=== PATIENT | female | born 1970 | race Caucasian/White ===

== ENCOUNTER 2019-08-23 08:07 | Day surgery (SDC) | payer BC ==
[~2019-08-23 08:07] MED LIST: Lactated Ringers 1,000 ML IV ONE
[2019-08-23] MEDS ORDERED: Lactated Ringers 1,000 ML IV SCH (09:00)
[2019-08-23] MEDS ORDERED: Versed 2 MG/2 ML Injection ONE (10:08)
[2019-08-23] MEDS ORDERED: SUBLIMAZE 100 MCG/2 ML ONE ×2 (10:08→11:11)
[2019-08-23] MEDS ORDERED: DIPRIVAN 200 MG/20 ML IV ONE (10:08)
[2019-08-23] MEDS ORDERED: Zofran 4 MG/2 ML VIAL ONE (10:15)
[2019-08-23] MEDS ORDERED: Decadron 4 MG INJ ONE ×2 (10:15)
[2019-08-23] MEDS ORDERED: TORAdol 30 mg Injection ONE (10:15)
[2019-08-23] MEDS ORDERED: Lactated Ringers 1,000 ML IV ONE (10:34)
[2019-08-23 12:09] VITALS: O2SAT 98
[2019-08-23 12:21] VITALS: BP 120/60; PULSE 52
--- NOTE | 2019-08-26 07:52 | OP ---
SURGERY DATE/TIME: 08/23/2019 1017 PREOPERATIVE DIAGNOSIS: Abnormal uterine bleeding and enlarged uterus. POSTOPERATIVE DIAGNOSES: 1) Abnormal uterine bleeding. 2) Enlarged uterus. 3) Posterior submucosal fibroid. 4) Endometrial polyp. PROCEDURE: 1) Hysteroscopy D&C. 2) Resection of posterior submucosal fibroid. 3) Resection of endometrial polyp. SURGEON: Americo Fuentes D.O. QUALITY CONTROL REPRESENTATIVE: Ziyad Juarez. ANESTHESIA: General. ESTIMATED BLOOD LOSS: Minimal. COMPLICATIONS: None. INDICATIONS: The risks, benefits, indications and alternatives of the procedure were reviewed with the patient prior to the procedure. The patient understood the risk of infection, bleeding, bowel injury, bladder injury, ureteral injury, uterine perforation and pelvic infection associated with the surgery and desires to have this surgery as a possible need to alleviate her current medical condition. DESCRIPTION OF PROCEDURE AND FINDINGS: At this point the patient is taken to the operating room, given general sedation, placed in dorsal lithotomy position. Prepped and draped in usual sterile fashion. A weighted speculum is then placed in the patient's vagina and the anterior lip of the cervix is grasped with a single tooth tenaculum. Endocervical dilators were advanced through the endocervical canal as a means to dilate the cervix and at this point the uterus was sounded to approximately 10 cm. From this point after dilatation of the cervix, a 5 mm hysteroscope was then placed through the endocervical canal towards the frontal region where visualization revealed her to have a submucosal fibroid approximately 2 to 3 cm by 2 to 3 cm in dimension located posteriorly. There also appeared to be just distal to the fibroid approximately 2 x 2 cm endometrial polypoid lesion. From this point the MyoSure was then introduced through the channel of the hysteroscope and resection of the submucosal fibroid was taken place and was done so without complication with several bites. After removal of the fibroid the MyoSure was used to resect the endometrial polyp without complication and in its entirety. Visualization regarding the remaining endometrial cavity appeared to be within normal limits with no other gross abnormalities that were noted. From this point the hysteroscope was then removed. The bilateral ostia were identified and were normal. Again, the hysteroscope was then removed and at this point a curette was then placed into the fundus and curettage was performed in all quadrants of the uterus retrieving a mild to moderate amount of tissue. After complete curettage all instruments were then removed from the patient's vaginal region. The patient was then taken out of the dorsal lithotomy position and was then taken to the recovery room in stable condition. All instruments and laps were accounted for x2.
== END 2019-08-23 12:23 | disposition home or self-care (01) ==
LOC: SDC 08:07
PROVIDERS: ATTEND Obstetrics & Gynecology
DX: N93.9 Abnormal uterine and vaginal bleeding, unspecified (principal); N84.0 Polyp of corpus uteri; D25.0 Submucous leiomyoma of uterus
CPT/HCPCS: 84703; 88305; J1100; J1885; J2250; J2405; J2704; J3010

== ENCOUNTER 2022-09-27 07:30 | Observation (INO) | payer BC ==
[2022-09-27] MEDS ORDERED: CLINDAMYCIN-D5W 900 MG/50 ML*** 900 MG/50 ML BAG IV STA (07:40)
[2022-09-27] MEDS ORDERED: Versed 2 MG/2 ML Injection IV ONE (07:41)
[2022-09-27] MEDS ORDERED: Pepcid 20 MG VIAL IV ONE ×2 (07:41→08:42)
[2022-09-27] MEDS ORDERED: Transderm Scop 1.5MG Patch TOP PRN (07:42)
[2022-09-27] MEDS ORDERED: Reglan 10 MG/2 ML IV ONE (07:42)
[2022-09-27] MEDS ORDERED: Lactated Ringers 1,000 ML IV ONE ×3 (07:49→12:09)
[2022-09-27] MEDS ORDERED: CLINDAMYCIN-D5W 900 MG/50 ML*** 900 MG/50 ML BAG IV ONE (07:50)
[2022-09-27] MEDS: Lactated Ringers 1,000 ML IV SCH ×2 (07:54→17:31)
[2022-09-27 08:10] LABS: Absolute Neutrophil Ct (ANC) 2.47 x10^3/uL (1.4-6.9); BASOPHIL % 1.3 % (0.0-0.4); Basophil (Absolute #) 0.06 x10^3/uL (0-0.4); Eosinophil % 5.9 % (0.00-5.0); Eosinophil (Absolute #) 0.27 x10^3/uL (0-0.5); Hemoglobin 9.9 g/dL (12.0-16.0); IMMATURE GRAN # 0.01 x10^3u/L (0.00-0.03); IMMATURE GRAN % 0.2 % (0.00-0.4); Lymphocytes % 28.3 % (24.0-44.0); Mean Cell Volume 79.3 fL (78-100); Mean Corpuscular Hemoglobin 23.8 pg (26-32); Mean Platelet Volume 10.6 fL (7.5-11.0); Monocyte (Absolute #) 0.48 x10^3/uL (0.0-1.3); Monocytes % 10.5 % (0.0-12.0); Neutrophil % 53.8 % (36.0-66.0); Platelet Count 231 x10^3/uL (150-450); Red Blood Count 4.16 x10^6/uL (4.1-5.4); Red Cell Distribution Width 16.9 % (11.5-14.0); White Blood Count 4.6 x10^3/uL (4.0-10.5)
[2022-09-27 08:22] LABS: ALBUMIN 4.3 g/dL (3.5-5.0); ALKALINE PHOSPHATASE 68 U/L (38-126); ANION GAP 7.5 MEQ/L (5-15); BLOOD UREA NITROGEN 16 mg/dL (7-17); CHLORIDE 106 mmol/L (98-107); Calcium 8.3 mg/dL (8.4-10.2); Carbon Dioxide 26 mmol/L (22-30); Creatinine 1 0.59 mg/dL (0.52-1.04); EST GLOMERULAR FILTRATION RATE > 60.0 ML/MIN; Glucose 88 mg/dL (74-106); Potassium 3.7 mmol/L (3.5-5.1); SGOT/AST 34 U/L (14-36); SGPT/ALT 25 U/L (0-35); SODIUM 136 mmol/L (137-145); Total Protein 7.6 g/dL (6.3-8.2)
[2022-09-27] MEDS ORDERED: Versed 2 MG/2 ML Injection ONE ×2 (08:42→09:33)
[2022-09-27] MEDS ORDERED: Transderm Scop 1.5MG Patch ONE (08:42)
[2022-09-27] MEDS ORDERED: Reglan 10 MG/2 ML ONE (08:42)
[2022-09-27 08:44] LABS: ABO TYPING O; Antibody Screen NEGATIVE (NEGATIVE); RH TYPING POSITIVE
[2022-09-27] MEDS ORDERED: DIPRIVAN 200 MG/20 ML IV ONE (09:32)
[2022-09-27] MEDS ORDERED: Xylocaine-Mpf 2% 5 Ml Vial ONE (09:33)
[2022-09-27] MEDS ORDERED: Decadron 4 MG INJ ONE (09:35)
[2022-09-27] MEDS ORDERED: Zofran 4 MG/2 ML VIAL ONE ×2 (09:35→11:31)
[2022-09-27] MEDS ORDERED: SUBLIMAZE 100 MCG/2 ML ONE (09:38)
[2022-09-27] MEDS ORDERED: Astramorph-Pf 5 MG/10 ML ONE (09:39)
[2022-09-27] MEDS ORDERED: Propofol 1000 mg/100 ml Bottle IV ONE (09:40)
[2022-09-27] MEDS ORDERED: PHENYLEPHRINE HCL ONE (10:04)
[2022-09-27] MEDS ORDERED: BRIDION 200MG/2ML IV ONE (10:15)
[2022-09-27] MEDS ORDERED: Marcaine 0.5%/Epinephrine 10 ML ONE (10:54)
[2022-09-27] MEDS ORDERED: TORAdol 30 mg Injection ONE (11:10)
[2022-09-27] MEDS ORDERED: Zofran 4 MG/2 ML VIAL IV PRN ×2 (12:30→13:00)
[2022-09-27] MEDS ORDERED: CLARITIN 10 MG PO PRN (13:00)
[2022-09-27] MEDS ORDERED: DEMEROL 50 MG IV PRN (13:00)
[2022-09-27] MEDS ORDERED: Sodium Chloride 0.9% 10 ML FLUSH Syringe IJ PRN (13:00)
[2022-09-27] MEDS ORDERED: BENADRYL 50 MG/ML IV PRN (13:00)
[2022-09-27] MEDS ORDERED: Nubain 10 MG/ML IV PRN (13:00)
[2022-09-27] MEDS ORDERED: Narcan 0.4 MG/ML IV PRN (13:00)
[2022-09-27] MEDS: HOLD NARCOTIC ANALGESICS AND SEDATIVES X24 HR MC SCH (13:03)
[2022-09-27] MEDS: MORPHINE SULFATE 2 MG INJ IV PRN ×3 (13:53→20:44)
[2022-09-27] MEDS: CLINDAMYCIN-D5W 900 MG/50 ML*** 900 MG/50 ML BAG IV SCH (15:33)
[2022-09-27] MEDS ORDERED: MEDICATION INTERVENTION MC SCH (16:15)
[2022-09-27 17:21] LABS: Appearance CLEAR (CLEAR); Bilirubin NEGATIVE (NEGATIVE); Glucose NEGATIVE (NEGATIVE); Ketones NEGATIVE (NEGATIVE); Nitrite NEGATIVE (NEGATIVE); Protein,Urine Dip NEGATIVE (Negative); RBC TRACE-INTACT Ery/ul (0-5); Urobilinogen 0.2 mg/dL (0-1)
[2022-09-27] MEDS: PERCOCET TABLET 5/325MG PO PRN ×2 (17:31→22:08)
[2022-09-27 18:26] LABS: Epithelial Cells None Seen /HPF (None Seen); Hyaline Casts NONE SEEN /LPF (0-2); RBC 0-2 /HPF (0-5)
[2022-09-27 18:32] LABS: Hematocrit 28.3 % (35-47); Hemoglobin 8.4 g/dL (12.0-16.0); Mean Cell Volume 79.3 fL (78-100); Mean Corpuscular Hemoglobin 23.5 pg (26-32); Mean Corpuscular Hgb Concent. 29.7 g/dL (32-36); Mean Platelet Volume 10.7 fL (7.5-11.0); Platelet Count 209 x10^3/uL (150-450); Red Blood Count 3.57 x10^6/uL (4.1-5.4); Red Cell Distribution Width 16.8 % (11.5-14.0)
[2022-09-27 18:37] LABS: Bacteria Many /HPF (None Seen)
[2022-09-28] MEDS: CLINDAMYCIN-D5W 900 MG/50 ML*** 900 MG/50 ML BAG IV SCH (00:02)
[2022-09-28] MEDS: MORPHINE SULFATE 2 MG INJ IV PRN ×2 (00:17→04:03)
[2022-09-28] MEDS: Lactated Ringers 1,000 ML IV SCH (04:34)
[2022-09-28 05:12] LABS: Hematocrit 25.2 % (35-47); Hemoglobin 7.7 g/dL (12.0-16.0); Mean Cell Volume 77.5 fL (78-100); Mean Corpuscular Hemoglobin 23.7 pg (26-32); Mean Corpuscular Hgb Concent. 30.6 g/dL (32-36); Mean Platelet Volume 11.1 fL (7.5-11.0); Platelet Count 226 x10^3/uL (150-450); Red Blood Count 3.25 x10^6/uL (4.1-5.4); Red Cell Distribution Width 17.3 % (11.5-14.0); White Blood Count 9.1 x10^3/uL (4.0-10.5)
--- NOTE | 2022-09-28 07:53 | PCM.NOTE ---
Date and Time: 09/28/22 0750 Subjective Assessment: pod 1 sp laparotomy supracervical hysterectomy pt resting in bed and doing well ambulating and tolerating diet vss afebrile abd; soft incision c/d/intact ext; no clubbing cyanosis or edema a/p sp laparotomy supracervical hysterectomy right ovarian cystectomy postop anemia will repeat cbc this morning likely dc home this afternoon should fu in office in 1 wk Objective Exam Wound Assessment: Skin/Wound Assessment Wound/Incision Assessment Start: 09/27/22 12:36 Text: Status: Active Freq: Q4H Protocol: Document 09/28/22 04:41 LM (Rec: 09/28/22 04:44 LM [id number]) Wound/Incision Assessment Lower Anterior Medial Abdomen Wound Assessment Shift Assessment Wound Type Incision Drainage Odor None/Absent General Appearance Well Approximated,Open to air Wound Photo Photo Taken No OBJECTIVE DATA Vital Signs: Vital Signs - 24 hr Temp Pulse Resp BP BP Pulse Ox 09/28/22 07:14 97.8 F 86 16 91/54 98 09/28/22 04:41 18 09/28/22 04:00 97.1 F 92 H 18 97/55 99 09/28/22 00:00 18 09/27/22 23:43 97.3 F 75 18 97/52 97 09/27/22 20:00 97.9 F 72 16 111/59 97 09/27/22 16:00 20 09/27/22 15:44 97.7 F 09/27/22 15:21 72 108/56 94 L 09/27/22 14:51 73 112/57 94 L 09/27/22 14:21 73 107/56 95 09/27/22 13:51 77 157/65 96 09/27/22 13:21 68 103/52 96 09/27/22 13:01 75 20 106/58 94 L 09/27/22 12:51 79 18 111/56 98 09/27/22 12:38 98.2 F 83 16 128/62 100 09/27/22 12:36 79 111/64 98 09/27/22 08:22 98.2 F 83 16 128/62 100 09/27/22 08:08 98.2 F 83 16 128/62 100 09/27/22 07:58 98.2 F 83 16 128/62 100 Pain Assessment - Last Documented Pain Intensity 2 Pain Scale Used 0-10 Pain Scale Intake and Output: Intake & Output 09/25/22 09/26/22 09/27/22 09/28/22 11:59 11:59 11:59 11:59 Intake Total 721 Output Total 2250 Balance -1529 Weight 57.2 kg 57.2 kg Lab Results: Lab Results-Last 24 Hours 09/27/22 09/27/22 09/27/22 Range/Units 08:00 08:00 08:00 WBC 4.6 (4.0-10.5) x10^3/uL RBC 4.16 (4.1-5.4) x10^6/uL Hgb 9.9 L (12.0-16.0) g/dL Hct 33.0 L (35-47) % MCV 79.3 (78-100) fL MCH 23.8 L (26-32) pg MCHC 30.0 L (32-36) g/dL RDW 16.9 H (11.5-14.0) % Plt Count 231 (150-450) x10^3/uL MPV 10.6 (7.5-11.0) fL Gran % 53.8 (36.0-66.0) % Immature Gran % (Auto) 0.2 (0.00-0.4) % Nucleat RBC Rel Count 0.0 (0.00-0.1) % Eos # (Auto) 0.27 (0-0.5) x10^3/uL Immature Gran # (Auto) 0.01 (0.00-0.03) x10^3u/L Absolute Lymphs (auto) 1.30 (1.0-4.6) x10^3/uL Absolute Monos (auto) 0.48 (0.0-1.3) x10^3/uL Absolute Nucleated RBC 0.00 (0.00-0.01) x10^3u/L Lymphocytes % 28.3 (24.0-44.0) % Monocytes % 10.5 (0.0-12.0) % Eosinophils % 5.9 H (0.00-5.0) % Basophils % 1.3 (0.0-0.4) % Absolute Granulocytes 2.47 (1.4-6.9) x10^3/uL Basophils # 0.06 (0-0.4) x10^3/uL Sodium 136 L (137-145) mmol/L Potassium 3.7 (3.5-5.1) mmol/L Chloride 106 (98-107) mmol/L Carbon Dioxide 26 (22-30) mmol/L Anion Gap 7.5 (5-15) MEQ/L BUN 16 (7-17) mg/dL Creatinine 0.59 (0.52-1.04) mg/dL Estimated GFR > 60.0 ML/MIN Glucose 88 (74-106) mg/dL Calcium 8.3 L (8.4-10.2) mg/dL Total Bilirubin 0.60 (0.2-1.3) mg/dL AST 34 (14-36) U/L ALT 25 (0-35) U/L Alkaline Phosphatase 68 (38-126) U/L Serum Total Protein 7.6 (6.3-8.2) g/dL Albumin 4.3 (3.5-5.0) g/dL Serum , Qual (Negative) Urine Color (YELLOW) Urine Appearance (CLEAR) Urine pH (5-6) Ur Specific [place] (1.005-1.025) POC Urine Protein Conf (Negative) Urine Ketones (NEGATIVE) Urine Nitrite (NEGATIVE) Urine Bilirubin (NEGATIVE) Urine Urobilinogen (0-1) mg/dL Urine Leukocytes (NEGATIVE) U Hyaline Cast (Auto) (0-2) /LPF Urine RBC (0-5) Franco/ul Urine Microscopic RBC (0-5) /HPF Urine Microscopic WBC (0-5) /HPF Ur Epithelial Cells (None Seen) /HPF Urine Bacteria (None Seen) /HPF Urine Glucose (NEGATIVE) mg/dL ABO Group O Rh Factor POSITIVE Antibody Screen NEGATIVE (NEGATIVE) 09/27/22 09/27/22 09/27/22 Range/Units 08:00 11:04 17:50 WBC 11.0 H (4.0-10.5) x10^3/uL RBC 3.57 L (4.1-5.4) x10^6/uL Hgb 8.4 L (12.0-16.0) g/dL Hct 28.3 L (35-47) % MCV 79.3 (78-100) fL MCH 23.5 L (26-32) pg MCHC 29.7 L (32-36) g/dL RDW 16.8 H (11.5-14.0) % Plt Count 209 (150-450) x10^3/uL MPV 10.7 (7.5-11.0) fL Gran % (36.0-66.0) % Immature Gran % (Auto) (0.00-0.4) % Nucleat RBC Rel Count (0.00-0.1) % Eos # (Auto) (0-0.5) x10^3/uL Immature Gran # (Auto) (0.00-0.03) x10^3u/L Absolute Lymphs (auto) (1.0-4.6) x10^3/uL Absolute Monos (auto) (0.0-1.3) x10^3/uL Absolute Nucleated RBC (0.00-0.01) x10^3u/L Lymphocytes % (24.0-44.0) % Monocytes % (0.0-12.0) % Eosinophils % (0.00-5.0) % Basophils % (0.0-0.4) % Absolute Granulocytes (1.4-6.9) x10^3/uL Basophils # (0-0.4) x10^3/uL Sodium (137-145) mmol/L Potassium (3.5-5.1) mmol/L Chloride (98-107) mmol/L Carbon Dioxide (22-30) mmol/L Anion Gap (5-15) MEQ/L BUN (7-17) mg/dL Creatinine (0.52-1.04) mg/dL Estimated GFR ML/MIN Glucose (74-106) mg/dL Calcium (8.4-10.2) mg/dL Total Bilirubin (0.2-1.3) mg/dL AST (14-36) U/L ALT (0-35) U/L Alkaline Phosphatase (38-126) U/L Serum Total Protein (6.3-8.2) g/dL Albumin (3.5-5.0) g/dL Serum , Qual NEGATIVE (Negative) Urine Color YELLOW (YELLOW) Urine Appearance CLEAR (CLEAR) Urine pH 7.0 (5-6) Ur Specific [place] 1.020 (1.005-1.025) POC Urine Protein Conf NEGATIVE (Negative) Urine Ketones NEGATIVE (NEGATIVE) Urine Nitrite NEGATIVE (NEGATIVE) Urine Bilirubin NEGATIVE (NEGATIVE) Urine Urobilinogen 0.2 (0-1) mg/dL Urine Leukocytes NEGATIVE (NEGATIVE) U Hyaline Cast (Auto) NONE SEEN (0-2) /LPF Urine RBC TRACE-INTACT A (0-5) Franco/ul Urine Microscopic RBC 0-2 (0-5) /HPF Urine Microscopic WBC 3-5 (0-5) /HPF Ur Epithelial Cells None Seen (None Seen) /HPF Urine Bacteria Many A (None Seen) /HPF Urine Glucose NEGATIVE (NEGATIVE) mg/dL ABO Group Rh Factor Antibody Screen (NEGATIVE) 09/28/22 Range/Units 04:30 WBC 9.1 (4.0-10.5) x10^3/uL RBC 3.25 L (4.1-5.4) x10^6/uL Hgb 7.7 L (12.0-16.0) g/dL Hct 25.2 L (35-47) % MCV 77.5 L (78-100) fL MCH 23.7 L (26-32) pg MCHC 30.6 L (32-36) g/dL RDW 17.3 H (11.5-14.0) % Plt Count 226 (150-450) x10^3/uL MPV 11.1 H (7.5-11.0) fL Gran % (36.0-66.0) % Immature Gran % (Auto) (0.00-0.4) % Nucleat RBC Rel Count (0.00-0.1) % Eos # (Auto) (0-0.5) x10^3/uL Immature Gran # (Auto) (0.00-0.03) x10^3u/L Absolute Lymphs (auto) (1.0-4.6) x10^3/uL Absolute Monos (auto) (0.0-1.3) x10^3/uL Absolute Nucleated RBC (0.00-0.01) x10^3u/L Lymphocytes % (24.0-44.0) % Monocytes % (0.0-12.0) % Eosinophils % (0.00-5.0) % Basophils % (0.0-0.4) % Absolute Granulocytes (1.4-6.9) x10^3/uL Basophils # (0-0.4) x10^3/uL Sodium (137-145) mmol/L Potassium (3.5-5.1) mmol/L Chloride (98-107) mmol/L Carbon Dioxide (22-30) mmol/L Anion Gap (5-15) MEQ/L BUN (7-17) mg/dL Creatinine (0.52-1.04) mg/dL Estimated GFR ML/MIN Glucose (74-106) mg/dL Calcium (8.4-10.2) mg/dL Total Bilirubin (0.2-1.3) mg/dL AST (14-36) U/L ALT (0-35) U/L Alkaline Phosphatase (38-126) U/L Serum Total Protein (6.3-8.2) g/dL Albumin (3.5-5.0) g/dL Serum , Qual (Negative) Urine Color (YELLOW) Urine Appearance (CLEAR) Urine pH (5-6) Ur Specific [place] (1.005-1.025) POC Urine Protein Conf (Negative) Urine Ketones (NEGATIVE) Urine Nitrite (NEGATIVE) Urine Bilirubin (NEGATIVE) Urine Urobilinogen (0-1) mg/dL Urine Leukocytes (NEGATIVE) U Hyaline Cast (Auto) (0-2) /LPF Urine RBC (0-5) Franco/ul Urine Microscopic RBC (0-5) /HPF Urine Microscopic WBC (0-5) /HPF Ur Epithelial Cells (None Seen) /HPF Urine Bacteria (None Seen) /HPF Urine Glucose (NEGATIVE) mg/dL ABO Group Rh Factor Antibody Screen (NEGATIVE) Multi-Disciplinary Progress Notes: Multi-Disciplinary Progress Notes 09/27/22 18:30 Respiratory Note by Maureen Ernst NO INCENTIVE AT THIS TIME PT NAUSEATED Initialized on 09/27/22 18:30 - END OF NOTE Assessment/Plan (1) S/P abdominal supracervical subtotal hysterectomy Current Visit: Yes Status: Acute Code(s): Z90.711 - ACQUIRED ABSENCE OF UTERUS WITH REMAINING CERVICAL STUMP (2) S/P ovarian cystectomy Current Visit: Yes Status: Acute Code(s): Z98.890 - OTHER SPECIFIED POSTPROCEDURAL STATES; Z87.42 - PERSONAL HISTORY OF OTH DISEASES OF THE FEMALE GENITAL TRACT (3) Anemia Current Visit: Yes Status: Acute Qualifiers: Iron deficiency anemia type: chronic blood loss Code(s): D64.9 - ANEMIA, UNSPECIFIED
--- NOTE | 2022-09-28 07:58 | PCM.DS ---
Discharge Summary Date of Admission: 09/27/22 07:30 Admitting Physician: HOLLIE ROBISON DO Primary Care Provider: PEDRO LUIS SHOOK Allergies Allergies Penicillins Allergy (Verified 11/21/19 16:02) Sulfa (Sulfonamide Antibiotics) Allergy (Verified 09/27/22 08:25) Hospital Summary - Hospital Course Hospital Course: pt admitted on sep 27 for undergoing laparotomy supracervical hysterectomy secondary to abnormal uterine bleeding and anemia and underwent procedure without complication. during postop period did well with stable hgb at 7.7 and was advised to continue iron supplementation bid. incision appeared clean dry and intact. pt advised to fu in office in 1 wk and norco was sent for pain management. - Vitals & Intake/Output Vital Signs: Vital Signs Temperature 97.8 F 09/28/22 07:14 Pulse Rate 86 09/28/22 07:14 Respiratory Rate 16 09/28/22 07:14 Blood Pressure 91/54 09/28/22 07:14 O2 Sat by Pulse Oximetry 98 09/28/22 07:14 Intake & Output: Intake & Output 09/25/22 09/26/22 09/27/22 09/28/22 11:59 11:59 11:59 11:59 Intake Total 721 Output Total 2250 Balance -1529 Weight 57.2 kg 57.2 kg - Lab Result Diagrams: 09/28/22 04:30 09/27/22 08:00 Lab Results-Last 24 Hrs: Lab Results-Last 24 Hours 09/27/22 09/27/22 09/27/22 Range/Units 08:00 08:00 08:00 WBC 4.6 (4.0-10.5) x10^3/uL RBC 4.16 (4.1-5.4) x10^6/uL Hgb 9.9 L (12.0-16.0) g/dL Hct 33.0 L (35-47) % MCV 79.3 (78-100) fL MCH 23.8 L (26-32) pg MCHC 30.0 L (32-36) g/dL RDW 16.9 H (11.5-14.0) % Plt Count 231 (150-450) x10^3/uL MPV 10.6 (7.5-11.0) fL Gran % 53.8 (36.0-66.0) % Immature Gran % (Auto) 0.2 (0.00-0.4) % Nucleat RBC Rel Count 0.0 (0.00-0.1) % Eos # (Auto) 0.27 (0-0.5) x10^3/uL Immature Gran # (Auto) 0.01 (0.00-0.03) x10^3u/L Absolute Lymphs (auto) 1.30 (1.0-4.6) x10^3/uL Absolute Monos (auto) 0.48 (0.0-1.3) x10^3/uL Absolute Nucleated RBC 0.00 (0.00-0.01) x10^3u/L Lymphocytes % 28.3 (24.0-44.0) % Monocytes % 10.5 (0.0-12.0) % Eosinophils % 5.9 H (0.00-5.0) % Basophils % 1.3 (0.0-0.4) % Absolute Granulocytes 2.47 (1.4-6.9) x10^3/uL Basophils # 0.06 (0-0.4) x10^3/uL Sodium 136 L (137-145) mmol/L Potassium 3.7 (3.5-5.1) mmol/L Chloride 106 (98-107) mmol/L Carbon Dioxide 26 (22-30) mmol/L Anion Gap 7.5 (5-15) MEQ/L BUN 16 (7-17) mg/dL Creatinine 0.59 (0.52-1.04) mg/dL Estimated GFR > 60.0 ML/MIN Glucose 88 (74-106) mg/dL Calcium 8.3 L (8.4-10.2) mg/dL Total Bilirubin 0.60 (0.2-1.3) mg/dL AST 34 (14-36) U/L ALT 25 (0-35) U/L Alkaline Phosphatase 68 (38-126) U/L Serum Total Protein 7.6 (6.3-8.2) g/dL Albumin 4.3 (3.5-5.0) g/dL Serum , Qual (Negative) Urine Color (YELLOW) Urine Appearance (CLEAR) Urine pH (5-6) Ur Specific [place] (1.005-1.025) POC Urine Protein Conf (Negative) Urine Ketones (NEGATIVE) Urine Nitrite (NEGATIVE) Urine Bilirubin (NEGATIVE) Urine Urobilinogen (0-1) mg/dL Urine Leukocytes (NEGATIVE) U Hyaline Cast (Auto) (0-2) /LPF Urine RBC (0-5) Franco/ul Urine Microscopic RBC (0-5) /HPF Urine Microscopic WBC (0-5) /HPF Ur Epithelial Cells (None Seen) /HPF Urine Bacteria (None Seen) /HPF Urine Glucose (NEGATIVE) mg/dL ABO Group O Rh Factor POSITIVE Antibody Screen NEGATIVE (NEGATIVE) 09/27/22 09/27/22 09/27/22 Range/Units 08:00 11:04 17:50 WBC 11.0 H (4.0-10.5) x10^3/uL RBC 3.57 L (4.1-5.4) x10^6/uL Hgb 8.4 L (12.0-16.0) g/dL Hct 28.3 L (35-47) % MCV 79.3 (78-100) fL MCH 23.5 L (26-32) pg MCHC 29.7 L (32-36) g/dL RDW 16.8 H (11.5-14.0) % Plt Count 209 (150-450) x10^3/uL MPV 10.7 (7.5-11.0) fL Gran % (36.0-66.0) % Immature Gran % (Auto) (0.00-0.4) % Nucleat RBC Rel Count (0.00-0.1) % Eos # (Auto) (0-0.5) x10^3/uL Immature Gran # (Auto) (0.00-0.03) x10^3u/L Absolute Lymphs (auto) (1.0-4.6) x10^3/uL Absolute Monos (auto) (0.0-1.3) x10^3/uL Absolute Nucleated RBC (0.00-0.01) x10^3u/L Lymphocytes % (24.0-44.0) % Monocytes % (0.0-12.0) % Eosinophils % (0.00-5.0) % Basophils % (0.0-0.4) % Absolute Granulocytes (1.4-6.9) x10^3/uL Basophils # (0-0.4) x10^3/uL Sodium (137-145) mmol/L Potassium (3.5-5.1) mmol/L Chloride (98-107) mmol/L Carbon Dioxide (22-30) mmol/L Anion Gap (5-15) MEQ/L BUN (7-17) mg/dL Creatinine (0.52-1.04) mg/dL Estimated GFR ML/MIN Glucose (74-106) mg/dL Calcium (8.4-10.2) mg/dL Total Bilirubin (0.2-1.3) mg/dL AST (14-36) U/L ALT (0-35) U/L Alkaline Phosphatase (38-126) U/L Serum Total Protein (6.3-8.2) g/dL Albumin (3.5-5.0) g/dL Serum , Qual NEGATIVE (Negative) Urine Color YELLOW (YELLOW) Urine Appearance CLEAR (CLEAR) Urine pH 7.0 (5-6) Ur Specific [place] 1.020 (1.005-1.025) POC Urine Protein Conf NEGATIVE (Negative) Urine Ketones NEGATIVE (NEGATIVE) Urine Nitrite NEGATIVE (NEGATIVE) Urine Bilirubin NEGATIVE (NEGATIVE) Urine Urobilinogen 0.2 (0-1) mg/dL Urine Leukocytes NEGATIVE (NEGATIVE) U Hyaline Cast (Auto) NONE SEEN (0-2) /LPF Urine RBC TRACE-INTACT A (0-5) Franco/ul Urine Microscopic RBC 0-2 (0-5) /HPF Urine Microscopic WBC 3-5 (0-5) /HPF Ur Epithelial Cells None Seen (None Seen) /HPF Urine Bacteria Many A (None Seen) /HPF Urine Glucose NEGATIVE (NEGATIVE) mg/dL ABO Group Rh Factor Antibody Screen (NEGATIVE) 09/28/22 Range/Units 04:30 WBC 9.1 (4.0-10.5) x10^3/uL RBC 3.25 L (4.1-5.4) x10^6/uL Hgb 7.7 L (12.0-16.0) g/dL Hct 25.2 L (35-47) % MCV 77.5 L (78-100) fL MCH 23.7 L (26-32) pg MCHC 30.6 L (32-36) g/dL RDW 17.3 H (11.5-14.0) % Plt Count 226 (150-450) x10^3/uL MPV 11.1 H (7.5-11.0) fL Gran % (36.0-66.0) % Immature Gran % (Auto) (0.00-0.4) % Nucleat RBC Rel Count (0.00-0.1) % Eos # (Auto) (0-0.5) x10^3/uL Immature Gran # (Auto) (0.00-0.03) x10^3u/L Absolute Lymphs (auto) (1.0-4.6) x10^3/uL Absolute Monos (auto) (0.0-1.3) x10^3/uL Absolute Nucleated RBC (0.00-0.01) x10^3u/L Lymphocytes % (24.0-44.0) % Monocytes % (0.0-12.0) % Eosinophils % (0.00-5.0) % Basophils % (0.0-0.4) % Absolute Granulocytes (1.4-6.9) x10^3/uL Basophils # (0-0.4) x10^3/uL Sodium (137-145) mmol/L Potassium (3.5-5.1) mmol/L Chloride (98-107) mmol/L Carbon Dioxide (22-30) mmol/L Anion Gap (5-15) MEQ/L BUN (7-17) mg/dL Creatinine (0.52-1.04) mg/dL Estimated GFR ML/MIN Glucose (74-106) mg/dL Calcium (8.4-10.2) mg/dL Total Bilirubin (0.2-1.3) mg/dL AST (14-36) U/L ALT (0-35) U/L Alkaline Phosphatase (38-126) U/L Serum Total Protein (6.3-8.2) g/dL Albumin (3.5-5.0) g/dL Serum , Qual (Negative) Urine Color (YELLOW) Urine Appearance (CLEAR) Urine pH (5-6) Ur Specific [place] (1.005-1.025) POC Urine Protein Conf (Negative) Urine Ketones (NEGATIVE) Urine Nitrite (NEGATIVE) Urine Bilirubin (NEGATIVE) Urine Urobilinogen (0-1) mg/dL Urine Leukocytes (NEGATIVE) U Hyaline Cast (Auto) (0-2) /LPF Urine RBC (0-5) Franco/ul Urine Microscopic RBC (0-5) /HPF Urine Microscopic WBC (0-5) /HPF Ur Epithelial Cells (None Seen) /HPF Urine Bacteria (None Seen) /HPF Urine Glucose (NEGATIVE) mg/dL ABO Group Rh Factor Antibody Screen (NEGATIVE) - Procedures and Test Procedures and Tests throughout Hospitalization: Therapy Orders & Screens 09/27/22 12:24 Incentive Spirometry TID Comment: Diagnosis: ABDOMINAL UTERINE BLEEDING,ANEMIA Discharge Exam Wound Assessment: Skin/Wound Assessment Wound/Incision Assessment Start: 09/27/22 12:36 Text: Status: Active Freq: Q4H Protocol: Document 09/28/22 04:41 LM (Rec: 09/28/22 04:44 LM [id number]) Wound/Incision Assessment Lower Anterior Medial Abdomen Wound Assessment Shift Assessment Wound Type Incision Drainage Odor None/Absent General Appearance Well Approximated,Open to air Wound Photo Photo Taken No Final Diagnosis/Problem List - Final Discharge Diagnosis/Problem (1) S/P abdominal supracervical subtotal hysterectomy Current Visit: Yes Status: Acute Code(s): Z90.711 - ACQUIRED ABSENCE OF UTERUS WITH REMAINING CERVICAL STUMP (2) S/P ovarian cystectomy Current Visit: Yes Status: Acute Code(s): Z98.890 - OTHER SPECIFIED POSTPROCEDURAL STATES; Z87.42 - PERSONAL HISTORY OF OTH DISEASES OF THE FEMALE GENITAL TRACT (3) Anemia Current Visit: Yes Status: Acute Code(s): D64.9 - ANEMIA, UNSPECIFIED - Discharge Disposition: Home, Self-Care Condition: Stable Prescriptions: New Hydrocodone/Acetaminophen [Hydrocodone-Acetamin 5-325 mg] 1 tab PO Q6HPRN PRN #30 tablet MDD 4 PRN Reason: Pain No Action Cyanocobalamin (Vitamin B-12) [Vitamin B-12] 500 mcg PO DAILY Follow up with: PEDRO LUIS SHOOK MD [Primary Care Provider] - HOLLIE ROBISON DO [ACTIVE STAFF] - 1 Week (should keep incision clean and dry may shower but no bath for 2 wks should call me for any issues that may arise)
[2022-09-28] MEDS ORDERED: ENOXAPARIN SODIUM SQ SCH (08:00)
--- NOTE | 2022-09-28 09:30 | OP ---
SURGERY DATE/TIME: 09/27/2022 0938 PREOPERATIVE DIAGNOSIS: Abnormal uterine bleeding with anemia. POSTOPERATIVE DIAGNOSIS: Abnormal uterine bleeding with anemia with enlarged uterus and fibroid uterus. PROCEDURES: 1) Laparotomy supracervical hysterectomy. 2) Right ovarian cystectomy SURGEON: Americo Fuentes D.O. FACILITIES ENGINEER: Zoey Reid, surgical pathologist. ANESTHESIA: General. ESTIMATED BLOOD LOSS: 300 cc. COMPLICATIONS: None. INDICATIONS: The risks, benefits, indications and alternatives of the procedure were reviewed with the patient prior to the procedure. The patient understood the risk of infection, bleeding, bowel injury, bladder injury, ureteral injury, uterine perforation, pelvic infection and thromboembolic disorder associated with this surgery and desires to have this surgery as a possible means to alleviate her current medical condition. DESCRIPTION OF PROCEDURE AND FINDINGS: At this point the patient is taken to the operating room placed in the supine position, given general anesthesia, prepared and draped in the usual sterile fashion. A Pfannenstiel incision was made approximately 2 cm above the symphysis pubis and extended sharply to the rectus fascia. The fascia was then incised bilaterally with curved Plummer scissors and the muscles of the anterior abdominal wall were in the midline by sharp and blunt dissection. The peritoneum was then grasped between two pickups elevated and entered sharply with Metzenbaum scissors. The pelvis is then examined and noted to have an approximately 12 weeks size uterus. At this point an O'Demar-O'Phelps retractor was placed into the incision and the bowel packed away with moist laparotomy sponges. A tenaculum is placed on the fundus as a means to elevate the uterus. At this point the LigaSure was then used and placed over the left utero-ovarian ligament where at this point it was noted that the left ovary had been removed previously as there was no left ovary noted during the procedure. From this point ligature was placed on the left utero-ovarian ligament clamped and cut and taken down to avoid the round ligament where it to was clamped, cut and taken towards the uterine vasculature and then a bladder flap developed on its side. The uterine vasculature was then skeletonized, clamped with Elvia clamps transected and suture ligated with 0 Vicryl suture and hemostasis was obtained. The same procedure was performed on the right side where the right adnexa was identified and was noted to have a simple cyst approximately 3 x 3 cm. The ligament was clamped, coagulated and cut on the surface of the ovary excising the cystic portion and hemostasis was obtained. The right utero-ovarian ligament clamped, coagulated and cut and taken down to the round ligament towards the vasculature where at this point the uterine arteries were skeletonized, clamped with Elvia clamp transected and suture ligated with 0 Vicryl suture. Again, hemostasis was assured and bladder flap developed on its side. 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 Hemostasis was obtained by placing sutures along the edge of cut portion of the uterus from its cervical stump. At this point hemostasis was obtained. From this point the pelvis is then irrigated copiously with warm normal saline. All operative sponges and instruments were then removed from the patient's abdomen. At this point the fascia was then closed with a running 0 Vicryl suture. Hemostasis was assured. The peritoneum was closed with 3-0 chromic suture in interrupted fashion. The subcutaneous layer was closed with 3-0 Vicryl. The skin was closed with absorbable mariana called INSORB. Sponge, lap, needle and instruments counts were correct x2. The patient was then taken out of anesthesia and was then taken to the recovery room in stable condition.
[2022-09-28 09:41] LABS: Hematocrit 24.8 % (35-47); Hemoglobin 7.3 g/dL (12.0-16.0); Mean Cell Volume 79.7 fL (78-100); Mean Corpuscular Hemoglobin 23.5 pg (26-32); Mean Corpuscular Hgb Concent. 29.4 g/dL (32-36); Mean Platelet Volume 9.9 fL (7.5-11.0); Platelet Count 193 x10^3/uL (150-450); Red Blood Count 3.11 x10^6/uL (4.1-5.4); Red Cell Distribution Width 17.2 % (11.5-14.0); White Blood Count 8.6 x10^3/uL (4.0-10.5)
[2022-09-28] MEDS: PERCOCET TABLET 5/325MG PO PRN (09:48)
[2022-09-28] MEDS ORDERED: Venofer 100 MG/5 ML*** 200 MG in Sodium Chloride 0.9% 100 ML IV ONE (10:00)
[2022-09-28] MEDS ORDERED: Vitamin B-12 500 MCG PO SCH (10:00)
[2022-09-28] MEDS ORDERED: Invanz *** 1 G in Sodium Chloride 100ML MINI-BAG PLUS 100 ML IV ONE (11:00)
[2022-09-28 11:11] VITALS: O2SAT 97
[2022-09-28] MEDS: HOLD NARCOTIC ANALGESICS AND SEDATIVES X24 HR MC SCH (11:38)
--- NOTE | 2022-09-28 12:50 | XRAY ---
Indication: Postop bleeding following hysterectomy one day earlier. Multiple contiguous axial images obtained through the abdomen and pelvis using 80 cc Isovue 370 contrast. Comparison: None Lung bases demonstrates mild dependent atelectasis. Heart not enlarged. There has been hysterectomy. Small abdominal free air, small pelvic free fluid, and infraumbilical abdominal wall subcutaneous air presumed related to surgery. No suspicious focal walled off fluid collection or abnormal enhancement. Noncontrasted stomach and bowel loops appear nonobstructed with normal appendix. Both kidneys enhance and excrete with normal appearing ureters bilaterally. 7 mm right upper renal cortical cyst. Urinary bladder demonstrates intraluminal air bubble either from recent catheterization versus gas-forming infection. Gallbladder is moderately distended without gallstones. Liver demonstrates 1.2 cm left lobe and 1.4 cm right lobe cysts. Remaining liver, gallbladder, pancreas, spleen, adrenal glands, kidneys, ureters, bladder, and aorta are unremarkable. No pathologic retroperitoneal lymphadenopathy. Osseous structures intact. No ventral or inguinal hernias. Impression: 1. Postsurgical changes related to hysterectomy as detailed. No focal walled off fluid collection or abnormal enhancement. Normal ureters. 2. Urinary bladder intraluminal air bubble either iatrogenic versus gas-forming infection. 3. Distended gallbladder without gallstones. 4. Incidental small right renal and hepatic cysts.
[2022-09-28] MEDS ORDERED: Sodium Chloride 0.9% 1000 ML 1,000 ML IV SCH (13:30)
[2022-09-28 13:39] LABS: CROSS MATCH (PRBC) COMPATIBLE (COMPATIBLE)
[2022-09-28] MEDS: NORCO 5/325 MG PO PRN ×2 (14:15→18:42)
[2022-09-28 15:58] VITALS: BP 100/54; PULSE 99
[2022-09-28 18:27] LABS: Hematocrit 27.2 % (35-47); Hemoglobin 8.4 g/dL (12.0-16.0)
== END 2022-09-28 18:53 | disposition home or self-care (01) ==
LOC: MED SURG 07:30
PROVIDERS: ADMIT Obstetrics & Gynecology; ATTEND Obstetrics & Gynecology
DX: D64.9 Anemia, unspecified (principal); N93.9 Abnormal uterine and vaginal bleeding, unspecified; Z87.42 Personal history of other diseases of the female genital tract; Z20.828 Contact with and (suspected) exposure to other viral communicable diseases; Z79.899 Other long term (current) drug therapy
CPT/HCPCS: 36415; 58180; 58925; 64488; 74177; 76937; 80053; 81001; 84484; 84703; 85014; 85018; 85025; 85027; 86850; 86900; 86901; 86922; 87086; 93005; P9016; 36430; 62322; 76942; 87077; 87186; G0378; J1100; J1335; J1650; J1756; J1885; J2250; J2270; J2274; J2370; J2405; J2704; J3010; A9270-GY